=== PATIENT | male | born 1965 | race African-American/Black ===

== ENCOUNTER → 2017-12-18 | Outpatient (CLI) | payer BC ==
--- NOTE | 2017-12-19 12:08 | Diagnostic Imaging Report ---
EXAMINATION: Scrotal ultrasound CLINICAL INDICATION: Epididymitis. COMPARISON: None.. TECHNIQUE: Grayscale and color Doppler evaluation of the scrotum was performed in transverse and longitudinal planes. FINDINGS: The right testicle measures 4.6 x 1.9 x 3.6 cm. Normal echogenicity and vascularity. There are no masses or calcifications.. The right epididymis measures 0.5 x 1.1 x 0.6 cm. Normal echogenicity and vascularity. No nodules or masses.. No significant right hydrocele or varicocele. There is normal arterial and venous flow to the right testicle, without evidence of torsion. The left testicle measures 3.5 x 3.1 x 3.1 cm. Normal echogenicity and vascularity. There are no masses or calcifications.. The left epididymis measures 0.8 x 0.9 x 0.6 cm. Normal echogenicity and vascularity. No nodules or masses.. 0.6 cm appendix epididymis. Very small left hydrocele. No varicocele. There is normal arterial and venous flow to the left testicle without evidence of torsion. The scrotum has a normal appearance, without focal lesions. Impression: 1. Normal bilateral testicular and epididymal size and echogenicity. Normal vascularity. No sonographic evidence of epididymitis. Signed by: Dr. Emmanuel Bills M.D. on 12/19/2017 12:05 PM
== END ==
LOC: US 16:18
PROVIDERS: ATTEND Urology
DX: N45.1 Epididymitis (principal)
CPT/HCPCS: 76870; 93976

== ENCOUNTER 2020-10-05 23:01 | Inpatient (IN) | payer BC, OTHER ==
[~2020-10-05] VITALS: Ht 177.8 cm; Wt 87.5 kg
[2020-10-05] MEDS ORDERED: DEXAMETHASONE SOD PHOS 10 MG/1 ML VIAL IV ONE (23:15)
[2020-10-05] MEDS ORDERED: CEFTRIAXONE 2 GM in SODIUM CHLORIDE 0.9% 100 ML IV ONE (23:15)
[2020-10-05] MEDS ORDERED: ACETAMINOPHEN 325 MG TAB PO ONE (23:15)
[2020-10-05] MEDS ORDERED: DEXAMETHASONE SOD PHOS INJ 4 MG/ML SDV ONE (23:32)
[2020-10-05] MEDS ORDERED: CEFTRIAXONE 1 GM VIAL ONE (23:33)
[2020-10-05] MEDS ORDERED: SODIUM CHLORIDE 0.9% 250ML 250 ML ONE (23:33)
[2020-10-05] MEDS ORDERED: IBUPROFEN 600 MG TAB ONE ×2 (23:33→23:40)
[2020-10-05 23:36] LABS: BASOPHILS % 0.1 % (0.0-1.0); HEMATOCRIT 37.8 % (38.2-49.6); HEMOGLOBIN 11.3 g/dL (14.0-18.0); LYMPHOCYTES # (AUTO) 1.2 (1.0-3.2); LYMPHOCYTES % 11.7 % (18.0-39.1); MEAN CORPUSCULAR HEMOGLOBIN 22.8 pg (28-32); MEAN CORPUSCULAR HGB CONC 29.9 g/dL (31-35); MEAN CORPUSCULAR VOLUME 76.2 fL (81-99); MONOCYTES # (AUTO) 0.8 (0.2-0.8); MONOCYTES % 7.7 % (4.4-11.3); NEUTROPHILS # (AUTO) 8.1 (2.1-6.9); NEUTROPHILS % 79.9 % (38.7-80.0); PLATELET COUNT 175 x10e3/uL (140-360); RED BLOOD COUNT 4.96 x10e6/uL (4.3-5.7)
[2020-10-05 23:55] LABS: ALBUMIN 4.2 g/dL (3.5-5.0); ALBUMIN/GLOBULIN RATIO 1.1 (0.8-2.0); ANION GAP 16.3 mmol/L (8-16); CALCIUM 9.5 mg/dL (8.4-10.2); CREATININE, SERUM 1.4 mg/dL (0.72-1.25); POTASSIUM 4.3 mmol/L (3.5-5.1)
[2020-10-06 00:01] LABS: CREATINE KINASE MB 0.3 ng/mL (0-5.0)
[2020-10-06 03:23] VITALS: BP 106/75
[2020-10-06 04:26] VITALS: BP 106/75
[2020-10-06] MEDS ORDERED: BENICAR5 MG PO (07:10)
[2020-10-06] MEDS ORDERED: GUAIFENESIN/DEXTROMETHORPHAN LIQD 5 ML UDC NG PRN (07:15)
[2020-10-06] MEDS ORDERED: DOCUSATE SODIUM 100 MG CAP PO PRN (07:15)
[2020-10-06] MEDS ORDERED: ZOLPIDEM TARTRATE 5 MG TAB PO PRN (07:15)
[2020-10-06] MEDS ORDERED: ONDANSETRON HCL INJ 2MG/ML 2ML 2 MG/ML VIAL IV PRN (07:15)
[2020-10-06] MEDS ORDERED: GUAIFENESIN/DEXTROMETHORPHAN 237 ML SYRUP PO PRN (08:15)
[2020-10-06 08:26] VITALS: BP 107/72
[2020-10-06] MEDS ORDERED: ZINC SULFATE 220 MG CAP PO SCH (09:00)
[2020-10-06] MEDS ORDERED: ASCORBIC ACID 500 MG TAB PO SCH (09:00)
[2020-10-06 09:06] LABS: BASOPHILS % 0.1 % (0.0-1.0); HEMATOCRIT 36.7 % (38.2-49.6); HEMOGLOBIN 11.1 g/dL (14.0-18.0); LYMPHOCYTES # (AUTO) 0.8 (1.0-3.2); LYMPHOCYTES % 8.6 % (18.0-39.1); MEAN CORPUSCULAR HGB CONC 30.2 g/dL (31-35); MONOCYTES # (AUTO) 0.5 (0.2-0.8); MONOCYTES % 5.6 % (4.4-11.3); NEUTROPHILS # (AUTO) 7.7 (2.1-6.9); NEUTROPHILS % 85.1 % (38.7-80.0); PLATELET COUNT 184 x10e3/uL (140-360); RED BLOOD COUNT 4.83 x10e6/uL (4.3-5.7); RED CELL DISTRIBUTION WIDTH 12.8 % (11.7-14.4)
[2020-10-06 09:30] LABS: ALBUMIN 3.7 g/dL (3.5-5.0); ALBUMIN/GLOBULIN RATIO 0.9 (0.8-2.0); ANION GAP 14.6 mmol/L (8-16); CALCIUM 9.1 mg/dL (8.4-10.2); CREATININE, SERUM 1.31 mg/dL (0.72-1.25); POTASSIUM 4.6 mmol/L (3.5-5.1)
[2020-10-06 09:59] LABS: CHOL/HDL RATIO 3.6 (3.9-4.7)
[2020-10-06] MEDS: BENZONATATE 100 MG CAP PO SCH ×3 (09:59→21:48)
[2020-10-06] MEDS: CEFTRIAXONE 2 GM in SODIUM CHLORIDE 0.9% 100 ML IV SCH (09:59)
[2020-10-06] MEDS: ASCORBIC ACID 500 MG TAB PO SCH ×2 (09:59→16:56)
[2020-10-06] MEDS: ENOXAPARIN INJ 80 MG/0.8 ML SYR SC SCH ×2 (09:59→16:56)
[2020-10-06] MEDS: ZINC SULFATE 220 MG CAP PO SCH (09:59)
[2020-10-06 10:19] VITALS: BP 107/72
[2020-10-06 10:35] LABS: CREATINE KINASE MB 0.7 ng/mL (0-5.0)
[2020-10-06] MEDS ORDERED: DEXTROSE 50% SYRINGE 50 ML IV PRN (11:45)
[2020-10-06] MEDS ORDERED: REMDESIVIR 200MG 200 MG IV ONE (14:00)
[2020-10-06] MEDS ORDERED: SUCCINYLCHOLINE CHLORIDE 20 MG/ML 10ML VIAL ONE (14:19)
[2020-10-06] MEDS ORDERED: ETOMIDATE 2 MG/ML 10 ML INJ IV ONE (14:19)
[2020-10-06] MEDS: INSULIN REGULAR, HUMAN 100 UNIT/1 ML SQ SCH ×2 (16:56→21:00)
[2020-10-06 17:24] LABS: CREATINE KINASE 439 IU/L (30-200)
[2020-10-06] MEDS: GUAIFENESIN/CODEINE 5 ML LIQD PO PRN ×2 (18:24→22:25)
[2020-10-06] MEDS: ACETAMINOPHEN 325 MG TAB PO PRN (18:34)
[2020-10-06 19:49] VITALS: BP 122/79
[2020-10-06 21:00] VITALS: BP 122/79
[2020-10-06] MEDS: DEXAMETHASONE SOD PHOS 10 MG/1 ML VIAL IV SCH (23:08)
[2020-10-07] VITALS (10 sets, daily range): BP systolic 112–121; BP diastolic 65–90
[2020-10-07 05:16] LABS: BASOPHILS % 0.2 % (0.0-1.0); HEMOGLOBIN 10.9 g/dL (14.0-18.0); LYMPHOCYTES # (AUTO) 1.1 (1.0-3.2); LYMPHOCYTES % 5.8 % (18.0-39.1); MEAN CORPUSCULAR HEMOGLOBIN 22.8 pg (28-32); MEAN CORPUSCULAR HGB CONC 30.3 g/dL (31-35); MEAN CORPUSCULAR VOLUME 75.2 fL (81-99); MONOCYTES # (AUTO) 1.2 (0.2-0.8); MONOCYTES % 6.5 % (4.4-11.3); NEUTROPHILS # (AUTO) 15.4 (2.1-6.9); NEUTROPHILS % 85.6 % (38.7-80.0); PLATELET COUNT 214 x10e3/uL (140-360); RED BLOOD COUNT 4.79 x10e6/uL (4.3-5.7); RED CELL DISTRIBUTION WIDTH 12.9 % (11.7-14.4)
[2020-10-07 05:47] LABS: ALBUMIN 3.7 g/dL (3.5-5.0); ANION GAP 16.2 mmol/L (8-16); CALCIUM 9.3 mg/dL (8.4-10.2); CREATININE, SERUM 1.1 mg/dL (0.72-1.25); POTASSIUM 5.2 mmol/L (3.5-5.1)
[2020-10-07] MEDS: GUAIFENESIN/CODEINE 5 ML LIQD PO PRN ×2 (05:55→17:00)
[2020-10-07] MEDS: INSULIN REGULAR, HUMAN 100 UNIT/1 ML SQ SCH ×5 (07:40→21:52)
[2020-10-07] MEDS: ZINC SULFATE 220 MG CAP PO SCH (08:27)
[2020-10-07] MEDS: ASCORBIC ACID 500 MG TAB PO SCH ×2 (08:27→17:02)
[2020-10-07] MEDS: BENZONATATE 100 MG CAP PO SCH ×3 (08:27→21:47)
[2020-10-07] MEDS: CEFTRIAXONE 2 GM in SODIUM CHLORIDE 0.9% 100 ML IV SCH (08:27)
[2020-10-07] MEDS: LORATADINE 10 MG TAB PO SCH (08:27)
[2020-10-07] MEDS: ENOXAPARIN SOD INJ 40 MG/0.4 ML SYR SC SCH ×2 (08:27→17:02)
[2020-10-07] MEDS: DEXAMETHASONE SOD PHOS 10 MG/1 ML VIAL IV SCH (08:27)
[2020-10-07 08:57] LABS: BAND NEUTROPHILS % (MANUAL) 2 %; LYMPHOCYTES % (MANUAL) 10 % (19-48); MONOCYTES % (MANUAL) 6 % (3.4-9.0); MYELOCYTES % (MANUAL) 1 % (0-0); NEUTROPHILS % (MANUAL) 81 % (40-74); NUCLEATED RED BLOOD CELLS 1; PLATELET ESTIMATE ADEQUATE; PLATELET MORPHOLOGY COMMENT NORMAL; RBC MORPHOLOGY COMMENT NORMAL
[2020-10-07] MEDS: REMDESIVIR 100MG 100 MG IV SCH (14:29)
[2020-10-07] MEDS ORDERED: ALBUTEROL SULFATE HFA 8GM INHALATION AEROSOL INH PRN (22:00)
[2020-10-08] VITALS (10 sets, daily range): BP systolic 111–141; BP diastolic 74–84
[2020-10-08 06:59] LABS: ALBUMIN 3.3 g/dL (3.5-5.0); ALBUMIN/GLOBULIN RATIO 0.8 (0.8-2.0); ANION GAP 15.4 mmol/L (8-16); CALCIUM 9.5 mg/dL (8.4-10.2); CREATININE, SERUM 0.97 mg/dL (0.72-1.25); POTASSIUM 4.4 mmol/L (3.5-5.1)
[2020-10-08 07:20] LABS: BASOPHILS % 0.2 % (0.0-1.0); EOSINOPHILS % 0.1 % (0.0-6.0); HEMATOCRIT 37.3 % (38.2-49.6); HEMOGLOBIN 11.1 g/dL (14.0-18.0); LYMPHOCYTES # (AUTO) 1.5 (1.0-3.2); LYMPHOCYTES % 6.4 % (18.0-39.1); MEAN CORPUSCULAR HEMOGLOBIN 22.6 pg (28-32); MEAN CORPUSCULAR HGB CONC 29.8 g/dL (31-35); MONOCYTES # (AUTO) 1.8 (0.2-0.8); MONOCYTES % 7.8 % (4.4-11.3); NEUTROPHILS # (AUTO) 19.1 (2.1-6.9); NEUTROPHILS % 82.4 % (38.7-80.0); PLATELET COUNT 277 x10e3/uL (140-360); RED BLOOD COUNT 4.91 x10e6/uL (4.3-5.7); RED CELL DISTRIBUTION WIDTH 13.1 % (11.7-14.4)
[2020-10-08] MEDS: INSULIN REGULAR, HUMAN 100 UNIT/1 ML SQ SCH ×4 (07:55→21:04)
[2020-10-08] MEDS: ENOXAPARIN SOD INJ 40 MG/0.4 ML SYR SC SCH ×2 (09:01→17:35)
[2020-10-08] MEDS: BENZONATATE 100 MG CAP PO SCH ×3 (09:01→21:34)
[2020-10-08] MEDS: CEFTRIAXONE 2 GM in SODIUM CHLORIDE 0.9% 100 ML IV SCH (09:01)
[2020-10-08] MEDS: LORATADINE 10 MG TAB PO SCH (09:01)
[2020-10-08] MEDS: DEXAMETHASONE SOD PHOS 10 MG/1 ML VIAL IV SCH (09:01)
[2020-10-08] MEDS: ZINC SULFATE 220 MG CAP PO SCH (09:01)
[2020-10-08] MEDS: ASCORBIC ACID 500 MG TAB PO SCH ×2 (09:01→17:35)
[2020-10-08] MEDS: REMDESIVIR 100MG 100 MG IV SCH (14:51)
[2020-10-08] MEDS: PIPERACILLIN/TAZOBACTAM 3.375 GM in SODIUM CHLORIDE 0.9% 50ML 50 ML IV SCH (17:35)
[2020-10-09] VITALS (16 sets, daily range): BP systolic 123–143; BP diastolic 78–96
[2020-10-09] MEDS: PIPERACILLIN/TAZOBACTAM 3.375 GM in SODIUM CHLORIDE 0.9% 50ML 50 ML IV SCH ×4 (01:17→17:44)
[2020-10-09 05:09] LABS: BASOPHILS # (AUTO) 0.1 (0.0-0.1); BASOPHILS % 0.4 % (0.0-1.0); HEMATOCRIT 37.5 % (38.2-49.6); HEMOGLOBIN 11.4 g/dL (14.0-18.0); LYMPHOCYTES # (AUTO) 1.7 (1.0-3.2); LYMPHOCYTES % 8.9 % (18.0-39.1); MEAN CORPUSCULAR HEMOGLOBIN 22.8 pg (28-32); MEAN CORPUSCULAR HGB CONC 30.4 g/dL (31-35); MEAN CORPUSCULAR VOLUME 75.2 fL (81-99); MONOCYTES # (AUTO) 1.5 (0.2-0.8); MONOCYTES % 7.8 % (4.4-11.3); NEUTROPHILS # (AUTO) 14.5 (2.1-6.9); NEUTROPHILS % 77.2 % (38.7-80.0); PLATELET COUNT 337 x10e3/uL (140-360); RED BLOOD COUNT 4.99 x10e6/uL (4.3-5.7); RED CELL DISTRIBUTION WIDTH 12.9 % (11.7-14.4)
[2020-10-09 08:23] LABS: BAND NEUTROPHILS % (MANUAL) 1 %; LYMPHOCYTES % (MANUAL) 9 % (19-48); MONOCYTES % (MANUAL) 11 % (3.4-9.0); NEUTROPHILS % (MANUAL) 79 % (40-74); PLATELET ESTIMATE ADEQUATE; PLATELET MORPHOLOGY COMMENT NORMAL
[2020-10-09 08:24] LABS: HYPOCHROMASIA SLIGHT; RBC MORPHOLOGY COMMENT NORMAL
[2020-10-09] MEDS ORDERED: SODIUM CHLORIDE 0.9% 250ML 250 ML ONE (08:35)
[2020-10-09 08:47] LABS: ALBUMIN 3.3 g/dL (3.5-5.0); ALBUMIN/GLOBULIN RATIO 0.8 (0.8-2.0); ANION GAP 14.2 mmol/L (8-16); CALCIUM 9.5 mg/dL (8.4-10.2); CREATININE, SERUM 1.03 mg/dL (0.72-1.25); POTASSIUM 4.2 mmol/L (3.5-5.1)
[2020-10-09] MEDS: REMDESIVIR 100MG 100 MG in SODIUM CHLORIDE 0.9% 100 ML IV SCH (08:55)
[2020-10-09] MEDS: DEXAMETHASONE SOD PHOS 10 MG/1 ML VIAL IV SCH (08:56)
[2020-10-09] MEDS: BENZONATATE 100 MG CAP PO SCH ×3 (08:56→22:03)
[2020-10-09] MEDS: LORATADINE 10 MG TAB PO SCH (08:56)
[2020-10-09] MEDS: ZINC SULFATE 220 MG CAP PO SCH (08:56)
[2020-10-09] MEDS: ENOXAPARIN SOD INJ 40 MG/0.4 ML SYR SC SCH ×2 (08:56→17:44)
[2020-10-09] MEDS: ASCORBIC ACID 500 MG TAB PO SCH ×2 (08:56→17:44)
[2020-10-09] MEDS: INSULIN REGULAR, HUMAN 100 UNIT/1 ML SQ SCH ×4 (08:58→21:00)
[2020-10-09] MEDS: BARICITINIB 2 MG TABLET PO SCH (13:34)
[2020-10-09] MEDS: ACETAMINOPHEN 325 MG TAB PO PRN (15:02)
[2020-10-09] MEDS: GUAIFENESIN/CODEINE 5 ML LIQD PO PRN (22:04)
[2020-10-10] VITALS (12 sets, daily range): BP systolic 132–142; BP diastolic 76–89
[2020-10-10] MEDS: PIPERACILLIN/TAZOBACTAM 3.375 GM in SODIUM CHLORIDE 0.9% 50ML 50 ML IV SCH ×4 (00:17→17:12)
[2020-10-10] MEDS: INSULIN REGULAR, HUMAN 100 UNIT/1 ML SQ SCH ×4 (07:30→21:00)
[2020-10-10 08:09] LABS: BASOPHILS # (AUTO) 0.1 (0.0-0.1); BASOPHILS % 0.6 % (0.0-1.0); EOSINOPHILS % 0.1 % (0.0-6.0); HEMATOCRIT 36.6 % (38.2-49.6); HEMOGLOBIN 11.3 g/dL (14.0-18.0); LYMPHOCYTES # (AUTO) 1.8 (1.0-3.2); LYMPHOCYTES % 12.8 % (18.0-39.1); MEAN CORPUSCULAR HEMOGLOBIN 22.9 pg (28-32); MEAN CORPUSCULAR HGB CONC 30.9 g/dL (31-35); MEAN CORPUSCULAR VOLUME 74.2 fL (81-99); MONOCYTES # (AUTO) 1.1 (0.2-0.8); MONOCYTES % 7.5 % (4.4-11.3); NEUTROPHILS % 71.3 % (38.7-80.0); PLATELET COUNT 399 x10e3/uL (140-360); RED BLOOD COUNT 4.93 x10e6/uL (4.3-5.7); RED CELL DISTRIBUTION WIDTH 12.8 % (11.7-14.4)
[2020-10-10 08:30] LABS: ALBUMIN 3.1 g/dL (3.5-5.0); ALBUMIN/GLOBULIN RATIO 0.7 (0.8-2.0); ANION GAP 16.1 mmol/L (8-16); CALCIUM 9.8 mg/dL (8.4-10.2); CREATININE, SERUM 0.97 mg/dL (0.72-1.25); POTASSIUM 4.1 mmol/L (3.5-5.1)
[2020-10-10] MEDS ORDERED: REMDESIVIR 100MG 100 MG IV ONE (08:31)
[2020-10-10] MEDS ORDERED: SODIUM CHLORIDE 0.9% 100 ML ONE (08:59)
[2020-10-10] MEDS: ASCORBIC ACID 500 MG TAB PO SCH ×2 (09:55→17:12)
[2020-10-10] MEDS: GUAIFENESIN/CODEINE 5 ML LIQD PO PRN ×3 (09:55→20:00)
[2020-10-10] MEDS: BENZONATATE 100 MG CAP PO SCH ×3 (09:55→21:09)
[2020-10-10] MEDS: DEXAMETHASONE SOD PHOS 10 MG/1 ML VIAL IV SCH (09:55)
[2020-10-10] MEDS: ENOXAPARIN SOD INJ 40 MG/0.4 ML SYR SC SCH ×2 (09:55→17:12)
[2020-10-10] MEDS: REMDESIVIR 100MG 100 MG in SODIUM CHLORIDE 0.9% 100 ML IV SCH (09:55)
[2020-10-10] MEDS: ZINC SULFATE 220 MG CAP PO SCH (09:55)
[2020-10-10] MEDS: LORATADINE 10 MG TAB PO SCH (09:55)
[2020-10-10] MEDS: BARICITINIB 2 MG TABLET PO SCH (09:55)
[2020-10-10] MEDS ORDERED: SODIUM CHLORIDE 0.9% 50ML 50 ML ONE (11:05)
[2020-10-10] MEDS: ACETAMINOPHEN 325 MG TAB PO PRN (13:08)
[2020-10-10] MEDS ORDERED: HYDROXYZINE HCL 25 MG TAB PO ONE (23:00)
[2020-10-11] VITALS (9 sets, daily range): BP systolic 126–161; BP diastolic 72–101
[2020-10-11] MEDS ORDERED: METOPROLOL SUCCINATE 25 MG TAB XL PO STA (00:20)
[2020-10-11] MEDS ORDERED: PIPERACILLIN/TAZOBACTAM 3.375 GM VIAL ONE (00:37)
[2020-10-11] MEDS: GUAIFENESIN/CODEINE 5 ML LIQD PO PRN ×3 (04:37→15:14)
[2020-10-11] MEDS: PIPERACILLIN/TAZOBACTAM 3.375 GM in SODIUM CHLORIDE 0.9% 50ML 50 ML IV SCH ×6 (05:34→23:24)
[2020-10-11 06:35] LABS: BASOPHILS # (AUTO) 0.1 (0.0-0.1); BASOPHILS % 0.8 % (0.0-1.0); EOSINOPHILS % 0.2 % (0.0-6.0); HEMATOCRIT 35.2 % (38.2-49.6); HEMOGLOBIN 10.8 g/dL (14.0-18.0); LYMPHOCYTES # (AUTO) 1.1 (1.0-3.2); LYMPHOCYTES % 9.9 % (18.0-39.1); MEAN CORPUSCULAR HEMOGLOBIN 22.6 pg (28-32); MEAN CORPUSCULAR HGB CONC 30.7 g/dL (31-35); MEAN CORPUSCULAR VOLUME 73.6 fL (81-99); MONOCYTES # (AUTO) 0.6 (0.2-0.8); MONOCYTES % 4.9 % (4.4-11.3); NEUTROPHILS # (AUTO) 8.8 (2.1-6.9); NEUTROPHILS % 76.5 % (38.7-80.0); PLATELET COUNT 431 x10e3/uL (140-360); RED BLOOD COUNT 4.78 x10e6/uL (4.3-5.7); RED CELL DISTRIBUTION WIDTH 12.7 % (11.7-14.4)
[2020-10-11 06:47] LABS: CALCIUM 9.7 mg/dL (8.4-10.2); CREATININE, SERUM 1.07 mg/dL (0.72-1.25)
[2020-10-11] MEDS: INSULIN REGULAR, HUMAN 100 UNIT/1 ML SQ SCH ×4 (07:30→20:23)
[2020-10-11] MEDS: ASCORBIC ACID 500 MG TAB PO SCH ×2 (08:46→17:17)
[2020-10-11] MEDS: BARICITINIB 2 MG TABLET PO SCH (08:46)
[2020-10-11] MEDS: DEXAMETHASONE SOD PHOS 10 MG/1 ML VIAL IV SCH (08:46)
[2020-10-11] MEDS: BENZONATATE 100 MG CAP PO SCH ×3 (08:46→20:23)
[2020-10-11] MEDS: LORATADINE 10 MG TAB PO SCH (08:46)
[2020-10-11] MEDS: ENOXAPARIN SOD INJ 40 MG/0.4 ML SYR SC SCH ×2 (08:47→17:17)
[2020-10-11] MEDS ORDERED: IOPAMIDOL 370 MG/ML 200 ML INFUS..BTL INJ ONE (11:21)
[2020-10-11] MEDS ORDERED: SODIUM CHLORIDE 0.9% 50ML 0 ML ONE ×2 (11:21→13:35)
[2020-10-11] MEDS: HYDROCODONE/APAP 5MG-325MG TAB PO PRN (11:46)
[2020-10-11] MEDS: METOPROLOL SUCCINATE 25 MG TAB XL PO SCH (13:15)
[2020-10-12] VITALS (8 sets, daily range): BP systolic 115–151; BP diastolic 68–92
[2020-10-12] MEDS: ACETAMINOPHEN 325 MG TAB PO PRN (00:24)
[2020-10-12] MEDS: PIPERACILLIN/TAZOBACTAM 3.375 GM in SODIUM CHLORIDE 0.9% 50ML 50 ML IV SCH (06:05)
[2020-10-12] MEDS ORDERED: SODIUM CHLORIDE 0.9% 250ML 250 ML ONE (06:11)
[2020-10-12 07:12] LABS: BASOPHILS # (AUTO) 0.1 (0.0-0.1); BASOPHILS % 0.4 % (0.0-1.0); EOSINOPHILS % 0.2 % (0.0-6.0); HEMATOCRIT 38.9 % (38.2-49.6); LYMPHOCYTES # (AUTO) 1.4 (1.0-3.2); LYMPHOCYTES % 9.8 % (18.0-39.1); MEAN CORPUSCULAR HEMOGLOBIN 22.8 pg (28-32); MEAN CORPUSCULAR HGB CONC 30.8 g/dL (31-35); MEAN CORPUSCULAR VOLUME 73.8 fL (81-99); MONOCYTES # (AUTO) 0.7 (0.2-0.8); MONOCYTES % 4.8 % (4.4-11.3); NEUTROPHILS # (AUTO) 10.8 (2.1-6.9); NEUTROPHILS % 78.2 % (38.7-80.0); PLATELET COUNT 469 x10e3/uL (140-360); RED BLOOD COUNT 5.27 x10e6/uL (4.3-5.7); RED CELL DISTRIBUTION WIDTH 13.2 % (11.7-14.4)
[2020-10-12 07:29] LABS: ANION GAP 16.2 mmol/L (8-16); CALCIUM 10.4 mg/dL (8.4-10.2); CREATININE, SERUM 1.04 mg/dL (0.72-1.25); POTASSIUM 4.2 mmol/L (3.5-5.1)
[2020-10-12] MEDS: INSULIN REGULAR, HUMAN 100 UNIT/1 ML SQ SCH ×4 (07:30→20:43)
[2020-10-12] MEDS: DEXAMETHASONE SOD PHOS 10 MG/1 ML VIAL IV SCH (08:33)
[2020-10-12] MEDS: BARICITINIB 2 MG TABLET PO SCH (08:34)
[2020-10-12] MEDS: LORATADINE 10 MG TAB PO SCH (08:34)
[2020-10-12] MEDS: BENZONATATE 100 MG CAP PO SCH ×3 (08:35→20:43)
[2020-10-12] MEDS: ASCORBIC ACID 500 MG TAB PO SCH ×2 (08:35→16:43)
[2020-10-12] MEDS: ENOXAPARIN SOD INJ 40 MG/0.4 ML SYR SC SCH ×2 (08:36→16:44)
[2020-10-12] MEDS: METOPROLOL SUCCINATE 25 MG TAB XL PO SCH (08:36)
[2020-10-13] VITALS (8 sets, daily range): BP systolic 121–138; BP diastolic 82–94
[2020-10-13 04:54] LABS: BASOPHILS # (AUTO) 0.1 (0.0-0.1); BASOPHILS % 0.4 % (0.0-1.0); EOSINOPHILS # (AUTO) 0.1 (0.0-0.4); HEMATOCRIT 38.2 % (38.2-49.6); HEMOGLOBIN 11.7 g/dL (14.0-18.0); LYMPHOCYTES # (AUTO) 1.3 (1.0-3.2); LYMPHOCYTES % 9.9 % (18.0-39.1); MEAN CORPUSCULAR HEMOGLOBIN 22.7 pg (28-32); MEAN CORPUSCULAR HGB CONC 30.6 g/dL (31-35); MONOCYTES # (AUTO) 0.7 (0.2-0.8); MONOCYTES % 5.3 % (4.4-11.3); NEUTROPHILS # (AUTO) 10.7 (2.1-6.9); NEUTROPHILS % 78.9 % (38.7-80.0); PLATELET COUNT 383 x10e3/uL (140-360); RED BLOOD COUNT 5.16 x10e6/uL (4.3-5.7); RED CELL DISTRIBUTION WIDTH 13.1 % (11.7-14.4)
[2020-10-13 05:13] LABS: ANION GAP 19.5 mmol/L (8-16); CALCIUM 10.1 mg/dL (8.4-10.2); CREATININE, SERUM 0.97 mg/dL (0.72-1.25); POTASSIUM 4.5 mmol/L (3.5-5.1)
[2020-10-13] MEDS: INSULIN REGULAR, HUMAN 100 UNIT/1 ML SQ SCH ×4 (08:57→20:58)
[2020-10-13] MEDS: DEXAMETHASONE SOD PHOS 10 MG/1 ML VIAL IV SCH (08:57)
[2020-10-13] MEDS: LORATADINE 10 MG TAB PO SCH (08:57)
[2020-10-13] MEDS: BARICITINIB 2 MG TABLET PO SCH (08:57)
[2020-10-13] MEDS: METOPROLOL SUCCINATE 25 MG TAB XL PO SCH (08:58)
[2020-10-13] MEDS: ENOXAPARIN SOD INJ 40 MG/0.4 ML SYR SC SCH ×2 (08:58→18:25)
[2020-10-13] MEDS: BENZONATATE 100 MG CAP PO SCH ×3 (08:58→20:57)
[2020-10-13] MEDS: ASCORBIC ACID 500 MG TAB PO SCH ×2 (09:00→18:25)
[2020-10-13] MEDS ORDERED: SODIUM CHLORIDE 0.9% 500ML 500 ML IV ONE (15:30)
[2020-10-14] VITALS (25 sets, daily range): BP systolic 103–163; BP diastolic 73–95
[2020-10-14 04:48] LABS: BASOPHILS % 0.1 % (0.0-1.0); EOSINOPHILS # (AUTO) 0.1 (0.0-0.4); HEMATOCRIT 40.5 % (38.2-49.6); HEMOGLOBIN 12.3 g/dL (14.0-18.0); LYMPHOCYTES # (AUTO) 1.2 (1.0-3.2); MEAN CORPUSCULAR HEMOGLOBIN 22.5 pg (28-32); MEAN CORPUSCULAR HGB CONC 30.4 g/dL (31-35); MEAN CORPUSCULAR VOLUME 74.2 fL (81-99); MONOCYTES # (AUTO) 0.7 (0.2-0.8); NEUTROPHILS # (AUTO) 12.3 (2.1-6.9); NEUTROPHILS % 83.9 % (38.7-80.0); PLATELET COUNT 534 x10e3/uL (140-360); RED BLOOD COUNT 5.46 x10e6/uL (4.3-5.7); RED CELL DISTRIBUTION WIDTH 12.7 % (11.7-14.4)
[2020-10-14 05:08] LABS: ALBUMIN 2.9 g/dL (3.5-5.0); ALBUMIN/GLOBULIN RATIO 0.6 (0.8-2.0); ANION GAP 15.3 mmol/L (8-16); CALCIUM 10.4 mg/dL (8.4-10.2); CREATININE, SERUM 0.98 mg/dL (0.72-1.25); POTASSIUM 4.3 mmol/L (3.5-5.1)
[2020-10-14] MEDS: ACETAMINOPHEN 325 MG TAB PO PRN ×3 (06:06→21:16)
[2020-10-14] MEDS: INSULIN REGULAR, HUMAN 100 UNIT/1 ML SQ SCH ×4 (07:30→21:16)
[2020-10-14] MEDS: BENZONATATE 100 MG CAP PO SCH ×3 (08:49→21:15)
[2020-10-14] MEDS: METOPROLOL SUCCINATE 25 MG TAB XL PO SCH (08:49)
[2020-10-14] MEDS: ENOXAPARIN SOD INJ 40 MG/0.4 ML SYR SC SCH ×2 (08:49→16:53)
[2020-10-14] MEDS: ASCORBIC ACID 500 MG TAB PO SCH ×2 (08:49→16:36)
[2020-10-14] MEDS: BARICITINIB 2 MG TABLET PO SCH (08:49)
[2020-10-14] MEDS: LORATADINE 10 MG TAB PO SCH (08:49)
[2020-10-15] VITALS (26 sets, daily range): BP systolic 65–133; BP diastolic 46–90
[2020-10-15 05:52] LABS: BASOPHILS % 0.1 % (0.0-1.0); EOSINOPHILS # (AUTO) 0.3 (0.0-0.4); EOSINOPHILS % 1.7 % (0.0-6.0); HEMATOCRIT 38.4 % (38.2-49.6); HEMOGLOBIN 11.6 g/dL (14.0-18.0); LYMPHOCYTES # (AUTO) 1.5 (1.0-3.2); MEAN CORPUSCULAR HEMOGLOBIN 22.6 pg (28-32); MEAN CORPUSCULAR HGB CONC 30.2 g/dL (31-35); MEAN CORPUSCULAR VOLUME 74.9 fL (81-99); MONOCYTES # (AUTO) 0.7 (0.2-0.8); MONOCYTES % 4.7 % (4.4-11.3); NEUTROPHILS % 81.7 % (38.7-80.0); PLATELET COUNT 451 x10e3/uL (140-360); RED BLOOD COUNT 5.13 x10e6/uL (4.3-5.7); RED CELL DISTRIBUTION WIDTH 12.9 % (11.7-14.4)
[2020-10-15 06:12] LABS: ALBUMIN 2.6 g/dL (3.5-5.0); ALBUMIN/GLOBULIN RATIO 0.5 (0.8-2.0); ANION GAP 19.4 mmol/L (8-16); CALCIUM 10.2 mg/dL (8.4-10.2); CREATININE, SERUM 0.96 mg/dL (0.72-1.25); POTASSIUM 4.4 mmol/L (3.5-5.1)
[2020-10-15] MEDS: ASCORBIC ACID 500 MG TAB PO SCH ×2 (09:45→16:14)
[2020-10-15] MEDS: ENOXAPARIN SOD INJ 40 MG/0.4 ML SYR SC SCH ×2 (09:45→16:14)
[2020-10-15] MEDS: BARICITINIB 2 MG TABLET PO SCH (09:46)
[2020-10-15] MEDS: LORATADINE 10 MG TAB PO SCH (09:46)
[2020-10-15] MEDS: METOPROLOL SUCCINATE 25 MG TAB XL PO SCH (09:46)
[2020-10-15] MEDS: BENZONATATE 100 MG CAP PO SCH (09:46)
[2020-10-15] MEDS: INSULIN REGULAR, HUMAN 100 UNIT/1 ML SQ SCH ×4 (09:47→21:24)
[2020-10-15] MEDS ORDERED: LACTATED RINGER'S 500 ML INJ ONE (11:45)
[2020-10-15] MEDS ORDERED: GUAIFENESIN/CODEINE 10 ML CUP PO PRN (11:45)
[2020-10-15] MEDS: PIPERACILLIN/TAZOBACTAM 3.375 GM in SODIUM CHLORIDE 0.9% 50ML 50 ML IV SCH ×2 (13:11→21:24)
[2020-10-15] MEDS: SALINE 0.65% NAS SOLN 1 SPRAY BTL SCH (17:00)
[2020-10-15] MEDS: DEXMEDETOMIDINE 400MCG/NS100ML 100 ML IV PRN (20:28)
[2020-10-15] MEDS: GUAIFENESIN/CODEINE 5 ML LIQD PO PRN (23:38)
[2020-10-15] MEDS: ACETAMINOPHEN 325 MG TAB PO PRN (23:38)
[2020-10-16] VITALS (25 sets, daily range): BP systolic 86–135; BP diastolic 50–90
[2020-10-16] MEDS: DEXMEDETOMIDINE 400MCG/NS100ML 100 ML IV PRN (03:40)
[2020-10-16] MEDS: PIPERACILLIN/TAZOBACTAM 3.375 GM in SODIUM CHLORIDE 0.9% 50ML 50 ML IV SCH ×3 (05:40→22:01)
[2020-10-16] MEDS: HYDROCODONE/APAP 5MG-325MG TAB PO PRN (05:40)
[2020-10-16 05:46] LABS: BASOPHILS # (AUTO) 0.1 (0.0-0.1); BASOPHILS % 0.3 % (0.0-1.0); EOSINOPHILS # (AUTO) 0.1 (0.0-0.4); EOSINOPHILS % 0.6 % (0.0-6.0); HEMATOCRIT 33.5 % (38.2-49.6); HEMOGLOBIN 10.7 g/dL (14.0-18.0); LYMPHOCYTES # (AUTO) 1.4 (1.0-3.2); LYMPHOCYTES % 6.9 % (18.0-39.1); MEAN CORPUSCULAR HEMOGLOBIN 23.8 pg (28-32); MEAN CORPUSCULAR HGB CONC 31.9 g/dL (31-35); MEAN CORPUSCULAR VOLUME 74.4 fL (81-99); MONOCYTES # (AUTO) 0.8 (0.2-0.8); MONOCYTES % 3.8 % (4.4-11.3); NEUTROPHILS # (AUTO) 17.3 (2.1-6.9); PLATELET COUNT 330 x10e3/uL (140-360); RED CELL DISTRIBUTION WIDTH 13.2 % (11.7-14.4)
[2020-10-16 06:20] LABS: ALBUMIN 2.3 g/dL (3.5-5.0); ALBUMIN/GLOBULIN RATIO 0.5 (0.8-2.0); ANION GAP 17.2 mmol/L (8-16); CALCIUM 9.7 mg/dL (8.4-10.2); CREATININE, SERUM 0.78 mg/dL (0.72-1.25); POTASSIUM 4.2 mmol/L (3.5-5.1)
[2020-10-16] MEDS: INSULIN REGULAR, HUMAN 100 UNIT/1 ML SQ SCH ×4 (08:54→21:00)
[2020-10-16] MEDS: ENOXAPARIN SOD INJ 40 MG/0.4 ML SYR SC SCH ×2 (08:55→19:23)
[2020-10-16] MEDS: ASCORBIC ACID 500 MG TAB PO SCH ×2 (08:55→19:23)
[2020-10-16] MEDS: METOPROLOL SUCCINATE 25 MG TAB XL PO SCH (09:00)
[2020-10-16] MEDS: SALINE 0.65% NAS SOLN 1 SPRAY BTL SCH ×2 (09:00→19:16)
[2020-10-16] MEDS: ACETAMINOPHEN 325 MG TAB PO PRN ×2 (11:35→15:19)
[2020-10-16] MEDS: FAMOTIDINE 20 MG/2 ML VIAL IV SCH (19:23)
[2020-10-17] VITALS (24 sets, daily range): BP systolic 74–132; BP diastolic 47–83
[2020-10-17] MEDS: ACETAMINOPHEN 325 MG TAB PO PRN ×3 (03:00→22:15)
[2020-10-17] MEDS: DEXMEDETOMIDINE 400MCG/NS100ML 100 ML IV PRN ×2 (04:24→19:30)
[2020-10-17] MEDS: PIPERACILLIN/TAZOBACTAM 3.375 GM in SODIUM CHLORIDE 0.9% 50ML 50 ML IV SCH ×3 (06:25→22:55)
[2020-10-17] MEDS: ASCORBIC ACID 500 MG TAB PO SCH ×2 (08:15→18:05)
[2020-10-17] MEDS: FAMOTIDINE 20 MG/2 ML VIAL IV SCH ×2 (08:15→18:04)
[2020-10-17] MEDS: SALINE 0.65% NAS SOLN 1 SPRAY BTL SCH ×2 (08:15→18:05)
[2020-10-17] MEDS: ENOXAPARIN SOD INJ 40 MG/0.4 ML SYR SC SCH ×2 (08:15→18:05)
[2020-10-17] MEDS: INSULIN REGULAR, HUMAN 100 UNIT/1 ML SQ SCH ×4 (08:27→21:00)
[2020-10-17 08:44] LABS: BASOPHILS % 0.2 % (0.0-1.0); EOSINOPHILS # (AUTO) 0.1 (0.0-0.4); EOSINOPHILS % 0.2 % (0.0-6.0); HEMOGLOBIN 9.7 g/dL (14.0-18.0); LYMPHOCYTES # (AUTO) 0.9 (1.0-3.2); LYMPHOCYTES % 4.3 % (18.0-39.1); MEAN CORPUSCULAR HGB CONC 31.3 g/dL (31-35); MEAN CORPUSCULAR VOLUME 73.5 fL (81-99); MONOCYTES # (AUTO) 0.8 (0.2-0.8); NEUTROPHILS # (AUTO) 18.7 (2.1-6.9); NEUTROPHILS % 90.2 % (38.7-80.0); PLATELET COUNT 298 x10e3/uL (140-360); RED BLOOD COUNT 4.22 x10e6/uL (4.3-5.7); RED CELL DISTRIBUTION WIDTH 13.1 % (11.7-14.4)
[2020-10-17 09:15] LABS: ALBUMIN/GLOBULIN RATIO 0.4 (0.8-2.0); ANION GAP 15.6 mmol/L (8-16); CREATININE, SERUM 0.81 mg/dL (0.72-1.25); POTASSIUM 4.6 mmol/L (3.5-5.1)
[2020-10-17] MEDS: GUAIFENESIN/CODEINE 5 ML LIQD PO PRN (10:30)
[2020-10-17] MEDS: ACETAMINOPHEN 1000 MG/100 ML IV PRN (13:30)
[2020-10-17] MEDS ORDERED: SODIUM CHLORIDE 0.9% 500ML 500 ML IV ONE (13:30)
[2020-10-17] MEDS ORDERED: SODIUM CHLORIDE 0.9% 1000ML 1,000 ML ONE (13:51)
[2020-10-17] MEDS ORDERED: NOREPINEPHRINE 8 MG/D5W 250 ML 250 ML ONE (15:24)
[2020-10-17] MEDS ORDERED: NOREPINEPHRINE 8 MG/D5W 250 ML 250 ML IV SCH (15:30)
[2020-10-17] MEDS: Vancomycin IV 1.25 GM in SODIUM CHLORIDE 0.9% 250ML 250 ML IV SCH (18:05)
[2020-10-18] VITALS (26 sets, daily range): BP systolic 80–126; BP diastolic 49–88
[2020-10-18] MEDS: DEXMEDETOMIDINE 400MCG/NS100ML 100 ML IV PRN ×5 (02:00→22:40)
[2020-10-18] MEDS: ACETAMINOPHEN 1000 MG/100 ML IV PRN ×2 (02:08→12:03)
[2020-10-18] MEDS: Vancomycin IV 1.25 GM in SODIUM CHLORIDE 0.9% 250ML 250 ML IV SCH ×2 (05:56→17:23)
[2020-10-18] MEDS: PIPERACILLIN/TAZOBACTAM 3.375 GM in SODIUM CHLORIDE 0.9% 50ML 50 ML IV SCH ×3 (05:56→21:52)
[2020-10-18 06:09] LABS: BASOPHILS # (AUTO) 0.1 (0.0-0.1); BASOPHILS % 0.3 % (0.0-1.0); EOSINOPHILS # (AUTO) 0.1 (0.0-0.4); EOSINOPHILS % 0.3 % (0.0-6.0); HEMATOCRIT 29.5 % (38.2-49.6); HEMOGLOBIN 9.2 g/dL (14.0-18.0); LYMPHOCYTES # (AUTO) 0.9 (1.0-3.2); LYMPHOCYTES % 4.7 % (18.0-39.1); MEAN CORPUSCULAR HEMOGLOBIN 23.2 pg (28-32); MEAN CORPUSCULAR HGB CONC 31.2 g/dL (31-35); MEAN CORPUSCULAR VOLUME 74.5 fL (81-99); MONOCYTES # (AUTO) 0.8 (0.2-0.8); NEUTROPHILS # (AUTO) 17.7 (2.1-6.9); NEUTROPHILS % 89.7 % (38.7-80.0); PLATELET COUNT 329 x10e3/uL (140-360); RED BLOOD COUNT 3.96 x10e6/uL (4.3-5.7)
[2020-10-18 06:53] LABS: ALBUMIN 1.9 g/dL (3.5-5.0); ALBUMIN/GLOBULIN RATIO 0.4 (0.8-2.0); ANION GAP 19.5 mmol/L (8-16); CALCIUM 10.1 mg/dL (8.4-10.2); CREATININE, SERUM 0.98 mg/dL (0.72-1.25); POTASSIUM 5.5 mmol/L (3.5-5.1)
[2020-10-18] MEDS: INSULIN REGULAR, HUMAN 100 UNIT/1 ML SQ SCH ×4 (07:30→20:42)
[2020-10-18] MEDS ORDERED: NOREPINEPHRINE 8 MG/D5W 250 ML 250 ML IV PRN (07:30)
[2020-10-18] MEDS: ASCORBIC ACID 500 MG TAB PO SCH ×2 (08:51→17:00)
[2020-10-18] MEDS: FAMOTIDINE 20 MG/2 ML VIAL IV SCH ×2 (08:51→17:22)
[2020-10-18] MEDS: SALINE 0.65% NAS SOLN 1 SPRAY BTL SCH ×2 (08:51→17:00)
[2020-10-18] MEDS: ENOXAPARIN SOD INJ 40 MG/0.4 ML SYR SC SCH ×2 (08:51→17:23)
[2020-10-18] MEDS ORDERED: IBUPROFEN 800MG/ 200ML 800 MG in SODIUM CHLORIDE 0.9% 250ML 250 ML IV PRN (17:14)
[2020-10-18] MEDS ORDERED: IBUPROFEN 800MG/ 200ML 200 ML IV ONE (18:07)
[2020-10-19] VITALS (23 sets, daily range): BP systolic 77–157; BP diastolic 49–93
[2020-10-19] MEDS: DEXMEDETOMIDINE 400MCG/NS100ML 100 ML IV PRN ×3 (01:56→16:06)
[2020-10-19] MEDS ORDERED: ACETAMINOPHEN 1000 MG/100 ML IV PRN (04:15)
[2020-10-19] MEDS ORDERED: ACETAMINOPHEN 1000 MG/100 ML 100 ML IV ONE (04:16)
[2020-10-19] MEDS: PIPERACILLIN/TAZOBACTAM 3.375 GM in SODIUM CHLORIDE 0.9% 50ML 50 ML IV SCH (05:57)
[2020-10-19] MEDS: Vancomycin IV 1.25 GM in SODIUM CHLORIDE 0.9% 250ML 250 ML IV SCH (05:57)
[2020-10-19 06:16] LABS: ALBUMIN 1.7 g/dL (3.5-5.0); ALBUMIN/GLOBULIN RATIO 0.4 (0.8-2.0); ANION GAP 17.1 mmol/L (8-16); CALCIUM 9.7 mg/dL (8.4-10.2); CREATININE, SERUM 0.8 mg/dL (0.72-1.25); POTASSIUM 5.1 mmol/L (3.5-5.1)
[2020-10-19 06:53] LABS: BASOPHILS % 0.2 % (0.0-1.0); EOSINOPHILS % 0.1 % (0.0-6.0); HEMATOCRIT 33.1 % (38.2-49.6); HEMOGLOBIN 9.8 g/dL (14.0-18.0); LYMPHOCYTES # (AUTO) 0.6 (1.0-3.2); LYMPHOCYTES % 2.9 % (18.0-39.1); MEAN CORPUSCULAR HEMOGLOBIN 22.3 pg (28-32); MEAN CORPUSCULAR HGB CONC 29.6 g/dL (31-35); MEAN CORPUSCULAR VOLUME 75.2 fL (81-99); MONOCYTES # (AUTO) 1.1 (0.2-0.8); MONOCYTES % 5.1 % (4.4-11.3); NEUTROPHILS # (AUTO) 19.9 (2.1-6.9); NEUTROPHILS % 90.7 % (38.7-80.0); PLATELET COUNT 289 x10e3/uL (140-360); RED CELL DISTRIBUTION WIDTH 13.2 % (11.7-14.4)
[2020-10-19] MEDS ORDERED: METOPROLOL TARTRATE INJ 1 MG/ML VIAL IV PRN ×2 (07:15→12:45)
[2020-10-19] MEDS: INSULIN REGULAR, HUMAN 100 UNIT/1 ML SQ SCH ×4 (08:18→21:00)
[2020-10-19] MEDS: ENOXAPARIN SOD INJ 40 MG/0.4 ML SYR SC SCH (08:20)
[2020-10-19] MEDS: FAMOTIDINE 20 MG/2 ML VIAL IV SCH ×2 (08:20→17:48)
[2020-10-19] MEDS ORDERED: IBUPROFEN 800MG/ 200ML 200 ML IV PRN (08:30)
[2020-10-19] MEDS: ASCORBIC ACID 500 MG TAB PO SCH ×2 (09:00→17:00)
[2020-10-19] MEDS ORDERED: EPINEPHRINE HCL SYRINGE ONE ×2 (13:21→21:36)
[2020-10-19] MEDS ORDERED: SODIUM BICARBONATE 8.4% INJ 50 ML SYR ONE (13:21)
[2020-10-19] MEDS ORDERED: MAGNESIUM SULF 1GRAM/DEXTROSE PREMIX BAG 100ML IV ONE (13:21)
[2020-10-19] MEDS ORDERED: AMIODARONE HCL INJ 150MG/3ML ONE (13:21)
[2020-10-19] MEDS ORDERED: ATROPINE SULFATE 0.1 MG/ML 10ML SYR ONE ×2 (13:21→20:26)
[2020-10-19] MEDS: SALINE 0.65% NAS SOLN 1 SPRAY BTL SCH ×2 (14:34→17:00)
[2020-10-19] MEDS ORDERED: DEXAMETHASONE SOD PHOS 10 MG/1 ML VIAL IV SCH (15:30)
[2020-10-19] MEDS ORDERED: BUDESONIDE 90 MCG FLEXHALER IH SCH (16:00)
[2020-10-19] MEDS ORDERED: ENOXAPARIN SOD INJ 40 MG/0.4 ML SYR SC SCH (17:00)
[2020-10-19] MEDS ORDERED: ROCURONIUM 1250MG/NS 250 250 ML ONE (19:29)
[2020-10-19] MEDS ORDERED: FENTANYL 2000MCG/NS 250 250 ML ONE (19:29)
[2020-10-19] MEDS ORDERED: MIDAZOLAM HCL 5MG/ML 10ML VIAL 100 ML IV ONE (19:29)
[2020-10-19] MEDS ORDERED: ROCURONIUM 1250MG/NS 250 250 ML IV PRN (19:30)
[2020-10-19] MEDS ORDERED: MIDAZOLAM HCL 5MG/ML 10ML VIAL 100 ML IV PRN (19:30)
[2020-10-19] MEDS ORDERED: FENTANYL 2000MCG/NS 250 250 ML IV SCH (19:30)
[2020-10-19] MEDS ORDERED: VECURONIUM BROMIDE FOR INJ 20 MG VIAL ONE (20:09)
[2020-10-19] MEDS ORDERED: MIDAZOLAM HCL 2 MG/2 ML VIAL ONE (20:09)
[2020-10-19] MEDS ORDERED: SODIUM CHLORIDE 0.9% 500ML 500 ML ONE (20:10)
[2020-10-19] MEDS ORDERED: SODIUM BICARBONATE 8.4% SYRING 100 ML ONE (20:26)
[2020-10-19] MEDS ORDERED: SODIUM BICARBONATE 8.4% SYRING 200 ML ONE (20:41)
[2020-10-19] MEDS ORDERED: SODIUM CHLORIDE 0.9% 1000ML 1,000 ML ONE (20:41)
[2020-10-19] MEDS ORDERED: AMIODARONE 900MG 500 ML IV ONE (20:52)
[2020-10-19] MEDS ORDERED: VASOPRESSIN INJ 20 UNIT/ML VIAL ONE ×2 (21:11→21:12)
[2020-10-19] MEDS ORDERED: DEXTROSE 5% 100ML 100 ML IV ONE (21:12)
[2020-10-19] MEDS ORDERED: VASOPRESSIN 60 UNIT in DEXTROSE 5% 50ML 57 ML IV PRN (21:15)
[2020-10-19 22:27] LABS: ABG PH 7.22 (7.35-7.45)
[2020-10-23 09:19] LABS: ABG PCO2 125 mmHg (35-45); ABG PH 7.01 (7.35-7.45)
[2020-10-23 09:20] LABS: ABG HCO3 32 mmol/L (22-26); ABG PO2 52 mmHg (80-105); ABG TCO2 35
[2020-10-23 09:37] LABS: ABG PH 7.22 (7.35-7.45)
[2020-10-23 09:38] LABS: ABG PCO2 80 mmHg (35-45)
[2020-10-23 09:39] LABS: ABG HCO3 33 mmol/L (22-26); ABG PO2 40 mmHg (80-105); ABG TCO2 35
[2020-10-23 09:53] LABS: ABG HCO3 32 mmol/L (22-26); ABG PCO2 86 mmHg (35-45); ABG PH 7.18 (7.35-7.45); ABG PO2 43 mmHg (80-105); ABG TCO2 34
== END 2020-10-19 22:18 | disposition expired | DRG 177 ==
LOC: ER 23:31 → ERHOLD 10-06 00:20 → IMCU 10-06 03:11 → ICU 10-14 01:45
PROVIDERS: ADMIT Internal Medicine; ATTEND Internal Medicine
PROC: 3E0333Z Introduction of Anti-inflammatory into Peripheral Vein, Percutaneous Approach (ICD-10-PCS; 2020-10-05)
PROC: XW033E5 Introduction of Remdesivir Anti-infective into Peripheral Vein, Percutaneous Approach, New Technology Group 5 (ICD-10-PCS; 2020-10-06)
PROC: 02HV33Z Insertion of Infusion Device into Superior Vena Cava, Percutaneous Approach (ICD-10-PCS; principal; 2020-10-14)
PROC: 3E043XZ Introduction of Vasopressor into Central Vein, Percutaneous Approach (ICD-10-PCS; 2020-10-17)
PROC: 5A12012 Performance of Cardiac Output, Single, Manual (ICD-10-PCS; 2020-10-19)
PROC: 5A2204Z Restoration of Cardiac Rhythm, Single (ICD-10-PCS; 2020-10-19)
DX: U07.1 COVID-19 (principal); J12.82 Pneumonia due to coronavirus disease 2019; J96.01 Acute respiratory failure with hypoxia; A41.89 Other specified sepsis; J15.9 Unspecified bacterial pneumonia; N17.9 Acute kidney failure, unspecified; I10 Essential (primary) hypertension; R73.9 Hyperglycemia, unspecified; E66.3 Overweight; Z68.27 Body mass index [BMI] 27.0-27.9, adult; D50.9 Iron deficiency anemia, unspecified; K21.9 Gastro-esophageal reflux disease without esophagitis
CPT/HCPCS: 31500; 36415; 36569; 71045; 76700; 80048; 80053; 80061; 82550; 82553; 82805; 82948; 83036; 83605; 84132; 84484; 85025; 86140; 87040; 87070; 87205; 92950; 93005; 94002; 94660; 94664; 96360; 96372; 99284; J0171; J0330; J0456; J0696; J1100; J1650; J1817; J2250; J2543; J3370; J3410; J3475; J7030; J7040; J7050; J7121; J7633; Q9967; U0002